=== PATIENT | male | born 1995 | race Hispanic/Latino ===

== ENCOUNTER 2022-02-16 07:52 | Emergency (ER) | payer OTHER, SELFPAY ==
[2022-02-16 08:16] LABS: #Basophils 0.1 10x3/uL (0.0-0.2); #Eosinphils 0.2 10x3/uL (0.0-0.5); #Monocytes 0.9 10x3/uL (0.0-1.1); #Neutrophils 4.6 10x3/uL (1.5-8.4); %Basophils 0.7 % (0.0-2.0); %Eosinophils 2.6 % (0.0-6.0); %Lymphocytes 35.5 % (18.0-47.0); %Monocytes 10.2 % (0.0-10.0); %Neutrophils 50.7 % (40.0-75.0); Mean Corpuscular HGB CONC 34.8 g/dL (32.0-36.0); Mean Corpuscular Hemoglobin 32.2 pg (27.0-33.0); Mean Corpuscular Volume 92.5 fl (81.2-95.1); Mean Platelet Volume 9.9 fl (7.4-10.4); Platelet Count 368 10x3/uL (150-450); RBC Distribution Width 12.5 % (11.5-14.5); Red Blood Cell (RBC) Count 4.66 10x6/uL (4.32-5.72); White Blood Cell (WBC) Count 9.1 10x3/uL (3.5-10.5)
[2022-02-16 08:26] LABS: Bilirubin Neg (Negative); Blood, Urine Negative (Negative); Clarity Clear (Clear); Glucose, Urine (Dipstick) Normal (Negative); Ketone, Urine Negative (Negative); Leukocyte Negative (Negative); Nitrite Negative (Negative); Protein, Urine (Dipstick) Negative (Neg-Trace); Urobilinogen Normal mg/dL (Less than 2)
[2022-02-16 08:32] LABS: Alcohol 75 mg/dL (Less than 10); CK (CPK) 286 U/L (30-200); Salicylate Less than 8.0 mg/dL (15.0-30.0)
[2022-02-16 08:34] LABS: Amphetamine Not Detected (NotDetected); Barbiturates Screen Not Detected (NotDetected); Benzodiazepine Screen Not Detected (NotDetected); Cocaine Metabolite Screen Not Detected (NotDetected); Methadone Not Detected (NotDetected); Methamphetamine Not Detected (NotDetected); Opiate Screen Not Detected (NotDetected); Oxycodone Screen Not Detected (NotDetected); Phencyclidine (PCP) Not Detected (NotDetected); THC/Cannabinoid Screen Not Detected (NotDetected); Tricyclic Screen Not Detected (NotDetected)
[2022-02-16 08:34] LABS: ALT (SGPT) 49 U/L (8-55); AST (SGOT) 28 U/L (5-34); Albumin 4.4 g/dL (3.5-5.0); Alkaline Phosphatase 83 U/L (40-110); Anion Gap 19 mmol/L (10-20); BUN (Urea Nitrogen) 11 mg/dL (8.9-20.6); Bilirubin, Total 0.2 mg/dL (0.2-1.2); Calc. Creatinine Clearance 0 mL/min (70-130); Calcium 9.2 mg/dL (7.8-10.44); Carbon Dioxide 18 mmol/L (22-29); Chloride 108 mmol/L (98-107); Globulin 2.6 g/dL (2.4-3.5); Glucose 151 mg/dL (70-105); Potassium 4.1 mmol/L (3.5-5.1); Sodium 141 mmol/L (136-145)
[2022-02-16] MEDS ORDERED: Mag-Al Plus 1200 MG/1200 MG/120 MG/30 ML UDCUP ONE (10:41)
[2022-02-16 12:16] LABS: Alcohol 11 mg/dL (Less than 10); Salicylate Less than 8.0 mg/dL (15.0-30.0)
== END 2022-02-16 18:49 ==
LOC: CSHERS 07:52
DX: R45.851 Suicidal ideations (principal); F32.A Depression, unspecified
CPT/HCPCS: 36415; 80053; 80306; 80307; 81003; 82550; 85025; 93005

== ENCOUNTER 2022-11-10 13:53 | Emergency (ER) | payer SELFPAY ==
[2022-11-10] MEDS ORDERED: Ketorolac Tromethamine 30 MG/ML VIAL ONE (17:29)
== END 2022-11-10 17:37 | disposition home or self-care (01) ==
LOC: CSHERS 13:53
DX: S00.83XA Contusion of other part of head, initial encounter (principal); Y04.0XXA Assault by unarmed brawl or fight, initial encounter
CPT/HCPCS: 70450; 70486; 96372; J1885